=== PATIENT | female | born 1960 | race Two or more races ===

== ENCOUNTER 2017-12-03 08:46 | Outpatient (CLI) | payer OTHER | END 2017-12-03 09:18 | disposition home or self-care (01) | LOC: RAD 501 08:46 | DX: N20.0 Calculus of kidney (principal) ==

== ENCOUNTER → 2017-12-10 | Outpatient (CLI) | payer OTHER | END | disposition home or self-care (01) | LOC: RAD 501 08:41 | DX: E11.9 Type 2 diabetes mellitus without complications (principal); I10 Essential (primary) hypertension ==

== ENCOUNTER 2017-12-23 12:30 | Inpatient (IN) | payer OTHER ==
[~2017-12-23] VITALS: Ht 152.4 cm; Wt 98.9 kg
[2017-12-23] MEDS ORDERED: FORTAMET1000 MG PO (14:07)
[2017-12-23] MEDS ORDERED: TRAGENTA PO (14:08)
[2017-12-23] MEDS ORDERED: AMARYL PO (14:09)
[2017-12-23] MEDS ORDERED: LOSARTAN POTASS50 MG PO (14:09)
[2017-12-23] MEDS ORDERED: METROPOLOL PO (14:09)
[2017-12-25] MEDS ORDERED: GLIMEPIRIDE4 MG PO (09:45)
[2017-12-25] MEDS ORDERED: TOPROL XL25 M1 PO (09:46)
[2017-12-25] MEDS ORDERED: JENTADUETO 2.51 EAC1 PO (09:47)
== END 2017-12-27 11:37 | disposition home or self-care (01) | DRG 660 ==
LOC: O/R 12-25 05:35 → SURH 12-25 05:35 → SURG 12-25 12:30 → SURH 12-25 15:58
PROVIDERS: Urology
PROC: BT1DZZZ Fluoroscopy of Right Kidney, Ureter and Bladder (ICD-10-PCS; 2017-12-25)
PROC: 0TC08ZZ Extirpation of Matter from Right Kidney, Via Natural or Artificial Opening Endoscopic (ICD-10-PCS; principal; 2017-12-25 14:00)
PROC: BT11YZZ Fluoroscopy of Right Kidney using Other Contrast (ICD-10-PCS; 2017-12-27)
DX: N20.0 Calculus of kidney (principal); Q60.0 Renal agenesis, unilateral; I10 Essential (primary) hypertension; E11.9 Type 2 diabetes mellitus without complications

== ENCOUNTER 2017-12-31 11:42 | Outpatient (CLI) | payer OTHER ==
[~2017-12-31 11:42] MED LIST: AMARYL PO; FORTAMET1000 MG PO; GLIMEPIRIDE4 MG PO; JENTADUETO 2.51 EAC1 PO; LOSARTAN POTASS50 MG PO; METROPOLOL PO; TOPROL XL25 M1 PO; TRAGENTA PO
== END 2017-12-31 11:51 | disposition home or self-care (01) ==
LOC: LAB 11:42 → RAD 11:42 → LAB 11:51
DX: N20.0 Calculus of kidney (principal)

== ENCOUNTER 2018-01-21 09:12 | Outpatient (CLI) | payer OTHER | END 2018-01-21 09:23 | disposition home or self-care (01) | LOC: RAD 501 09:12 | DX: N20.0 Calculus of kidney (principal) ==

== ENCOUNTER 2018-01-28 10:28 | Outpatient (CLI) | payer OTHER | END 2018-01-28 17:56 | disposition home or self-care (01) | LOC: SONOGRAMA 10:28 | DX: N20.0 Calculus of kidney (principal) ==

== ENCOUNTER → 2018-04-14 | Outpatient (CLI) | payer OTHER | END | disposition home or self-care (01) | LOC: RAD 501 10:25 | DX: N20.0 Calculus of kidney (principal) ==